=== PATIENT | female | born 1945 | race Two or more races ===

== ENCOUNTER 2021-03-29 06:15 | Inpatient (IN) | payer OTHER ==
[~2021-03-29] VITALS: Ht 160 cm; Wt 108.0 kg
[2021-03-29] VITALS (13 sets, daily range): BP systolic 96–158; BP diastolic 52–76
[~2021-03-29 06:15] MED LIST: ASPI1TAB20 PO; HYDR25TA4 PO; MULT-775 PO; NAPR375T27 PO; OMEGCAP2 OR; SERT100T PO; SIMV-13 PO
[2021-03-29] MEDS ORDERED: ceFAZolin 1GM/50ML 100 ML IV ONE (06:35)
[2021-03-29] MEDS ORDERED: VANCOMYCIN HCL 1000 MG VL ONE (07:16)
[2021-03-29] MEDS ORDERED: EPINEPHrine HCL 1 MG/1 ML AMP ONE (07:16)
[2021-03-29] MEDS ORDERED: TRANEXAMIC ACID 20 ML ONE (07:17)
[2021-03-29] MEDS ORDERED: MIDAZOLAM HCL 2MG/2ML 2ml VIAL (1mg/ml) ONE (07:24)
[2021-03-29] MEDS ORDERED: MORPHINE SULF PF 2 MG/2 ML SYRG ONE (07:24)
[2021-03-29] MEDS ORDERED: fentaNYL CITRATE 100 MCG/2 ML VL ONE (07:24)
[2021-03-29] MEDS ORDERED: TETRACAINE 1% INJ 2 ML VIAL IJ ONE (07:27)
[2021-03-29] MEDS ORDERED: PROPOFOL 10 MG/ML 20 ML IV ONE (07:45)
[2021-03-29] MEDS ORDERED: HYDROmorphone HCL 2 MG/ML VL IV PRN ×2 (09:30→10:45)
[2021-03-29] MEDS ORDERED: ONDANSETRON HCL 4 MG/2 ML VIAL IV PRN (09:30)
[2021-03-29] MEDS ORDERED: DexAMETHasone SOD PHOS 10MG/1ML VIAL INJ IV PRN (09:30)
[2021-03-29] MEDS ORDERED: NALOXONE HCL 0.4 MG/ML VIAL IV PRN (09:30)
[2021-03-29] MEDS ORDERED: NALBUPHINE HCL 10 MG/1ml INJECTION SUBCUT ONE (09:30)
[2021-03-29] MEDS ORDERED: diphenhdrAMINE HCL 50 MG/1 ML VL IV PRN (09:30)
[2021-03-29] MEDS ORDERED: PHENYLEPHRINE HCL 10 MG/ML VL ONE (10:00)
[2021-03-29] MEDS ORDERED: ONDANSETRON HCL 4 MG/2 ML VIAL ONE (10:00)
[2021-03-29] MEDS ORDERED: oxyCODONE HCL 5MG TAB PO PRN ×2 (10:45)
[2021-03-29] MEDS: D5W/LACTATED RINGERS 1,000 ML IV SCH ×2 (11:30→20:45)
[2021-03-29] MEDS ORDERED: ceFAZolin 2 GM in D5W 5% 100 ML IV SCH (14:00)
[2021-03-29] MEDS: ACETAMINOPHEN 325 MG TAB PO SCH ×3 (14:12→23:39)
[2021-03-29] MEDS: KETOROLAC TROMETH 30 MG/ML 1ML VIAL IV SCH ×3 (14:12→23:40)
[2021-03-29] MEDS: ceFAZolin 2 GM in D5W 5% 100 ML IV SCH ×2 (15:02→22:24)
[2021-03-29] MEDS ORDERED: PRAVASTATIN SODIUM 20 MG TAB PO SCH (22:00)
[2021-03-29] MEDS: PREGABALIN 25 MG CAP PO SCH (22:24)
[2021-03-30] VITALS (23 sets, daily range): BP systolic 90–133; BP diastolic 45–68
[2021-03-30] MEDS: ACETAMINOPHEN 325 MG TAB PO SCH ×2 (05:48→12:39)
[2021-03-30] MEDS: KETOROLAC TROMETH 30 MG/ML 1ML VIAL IV SCH ×2 (05:48→12:39)
[2021-03-30] MEDS: D5W/LACTATED RINGERS 1,000 ML IV SCH ×2 (07:22→16:45)
[2021-03-30] MEDS: PREGABALIN 25 MG CAP PO SCH (09:22)
[2021-03-30] MEDS ORDERED: PATIENTS OWN MEDICATION (Simvastatin 40 MG) PO SCH (10:00)
[2021-03-30] MEDS ORDERED: ASPirin 81 mg TAB PO SCH (10:00)
[2021-03-30] MEDS ORDERED: HCTZ 25 MG TAB PO SCH (10:00)
[2021-03-30] MEDS ORDERED: SERTRALINE PO SCH (10:00)
== END 2021-03-30 17:35 | disposition home health service (06) | DRG 470 ==
LOC: SUR 06:15 → TELE-WESTW 10:33
PROVIDERS: ADMIT Orthopaedic Surgery; ATTEND Orthopaedic Surgery
PROC: 0SRC069 Replacement of Right Knee Joint with Oxidized Zirconium on Polyethylene Synthetic Substitute, Cemented, Open Approach (ICD-10-PCS; principal; 2021-03-29 07:44)
DX: M17.11 Unilateral primary osteoarthritis, right knee (principal); Z68.41 Body mass index [BMI] 40.0-44.9, adult; E66.9 Obesity, unspecified
CPT/HCPCS: 73562; 86850; 86900; 86901; 97116; 97163; 97530; G0378; J0171; J0690; J1885; J2250; J2405; J2704; J7060